=== PATIENT | male | born 1985 ===

== ENCOUNTER 2023-04-22 20:07 | Emergency (ER) | payer SELFPAY ==
[2023-04-22 20:57] LABS: Absolute Lymphocytes (CBC) 1.9 K/uL (0.7-4.9); Hematocrit 38.9 % (39.6-49.0); Lymphocytes % 25.5 % (15.3-44.8); MCV 95.4 fL (80-100); MPV 6.2 fL (7.6-11.3); Platelets 371 thou/uL (152-406); RBC Red Blood Cell Count 4.08 M/uL (4.33-5.43)
[2023-04-22 20:59] LABS: Protime INR 0.96
--- NOTE | 2023-04-22 21:11 | RAD REPORT ---
EXAM DESCRIPTION: RAD - Chest Single View - 04/22/2023 9:03 pm CLINICAL HISTORY: DYSPNEA Chest pain. COMPARISON: <Comparisons> FINDINGS: Portable technique limits examination quality. The lungs are grossly clear. The heart is normal in size. No displaced fractures. IMPRESSION: No acute intrathoracic process suspected.
[2023-04-22 21:15] LABS: Albumin 3.7 g/dL (3.4-5.0); Bilirubin Direct 0.1 mg/dL (0-0.2); Bilirubin Indirect, Calculated 0.3 mg/dL (0.2-0.8); Bilirubin Total 0.4 mg/dL (0.2-1.0); Magnesium 1.8 mg/dL (1.6-2.4); Potassium 3.2 mEq/L (3.5-5.1); Protein, Total 8.1 g/dL (6.4-8.2)
--- NOTE | 2023-04-22 22:24 | EDPHYS ---
Physician Documentation [facility] Name: Miguel Hale Age: 38 yrs Sex: Male : 1985 Arrival Date: 04/22/2023 Time: 20:07 Bed 2 Private MD: ED Physician Mervin Guajardo HPI: 04/22 20:12 This 38 yrs old Male presents to ER via Unassigned with complaints of sp4 Shortness Of Breath, Dizziness. 21:02 This is a very pleasant young man with no significant past medical history who presents sp4 with a cute onset of dizziness, associated with dyspnea on exertion while at work and near syncopal episode. Dizziness started 1 week ago associated with dyspnea on exertion without any chest pain. Patient denied palpitations. He denied syncopal episode. 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 . Historical: - Allergies: 20:25 No Known Allergies; mb9 - Home Meds: 20:25 None [Active]; mb9 - PMHx: 20:25 None; mb9 - PSHx: 20:25 None; mb9 - Immunization history:: Client reports having NOT received the Covid vaccine. - Social history:: Smoking status: Patient denies any tobacco usage or history of. - Family history:: not pertinent. ROS: 21:02 Constitutional: Negative for fever, chills, and weight loss, Cardiovascular: Negative sp4 for chest pain, palpitations, and edema, positive dizziness, positive for dyspnea on exertion, positive for near syncope 21:02 All other systems are negative. Exam: 21:02 Constitutional: This is a well developed, well nourished patient who is awake, alert, sp4 and in no acute distress. Head/Face: Normocephalic, atraumatic. Eyes: Pupils equal round and reactive to light, extra-ocular motions intact. Lids and lashes normal. Conjunctiva and sclera are not injected. Cornea within normal limits. Periorbital areas with no swelling, redness, or edema. ENT: Nares patent. No nasal discharge, no septal abnormalities noted. Tympanic membranes are normal and external auditory canals are clear. Oropharynx with no redness, swelling, or masses, exudates, or evidence of obstruction, uvula midline. Mucous membranes moist. Neck: Trachea midline, no thyromegaly or masses palpated, and no cervical lymphadenopathy. Supple, full range of motion without nuchal rigidity, or vertebral point tenderness. Chest/axilla: Normal chest wall appearance and motion. Nontender with no deformity. No lesions are appreciated. Cardiovascular: Regular rate and rhythm with a normal S1 and S2. No gallops, murmurs, or rubs. Normal PMI, no JVD. No pulse deficits. Respiratory: Lungs have equal breath sounds bilaterally, clear to auscultation and percussion. No rales, rhonchi or wheezes noted. No increased work of breathing, no retractions or nasal flaring. Abdomen/GI: Soft, non-tender, with normal bowel sounds. No distension or tympany. No guarding or rebound. No evidence of tenderness throughout. Back: No spinal tenderness. No costovertebral tenderness. Skin: Warm, dry with normal turgor. Normal color with no rashes, no lesions, and no evidence of cellulitis. MS/ Extremity: Pulses equal, no cyanosis. Neurovascular intact. Full, normal range of motion. Neuro: Awake and alert, GCS 15, oriented to person, place, time, and situation. Cranial nerves II-XII grossly intact. Motor strength 5/5 in all extremities. Sensory grossly intact. Psych: Awake, alert, with orientation to person, place and time. Behavior, mood, and affect are within normal limits 21:02 ECG was reviewed by the Attending Physician. EKG time 2036, normal sinus rhythm with sp4 short AL. No ST elevation or depression, no ectopy, and no other abnormality. Vital Signs: 20:20 BP 152 / 111 RA; Pulse 97; Resp 20; Temp 98.1; Pulse Ox 100% ; Weight 74.84 kg; Height mb9 5 ft. 9 in. ; 20:20 BP 149 / 98 LL; mb9 21:27 BP 128 / 94; Pulse 82; Resp 18; Pulse Ox 100% ; kl 20:20 Body Mass Index 24.37 (74.84 kg, 175.26 cm) mb9 MDM: 20:15 Patient medically screened. sp4 22:20 Differential diagnosis: Anemia Anxiety Reaction CHF exacerbation, Psychogenic pulmonary sp4 edema, Unstable Angina. Data reviewed: vital signs, nurses notes, old medical records, lab test result(s), EKG, radiologic studies, plain films. ED course: Chest x-ray as noted, EKG is normal, labs revealed mild hypokalemia otherwise normal. 22:21 ED course: Patient will require 2 days off and bedrest for 2 days, referral to local [facility] mine safety director for evaluation in office such as echocardiogram and Holter monitor. At this time there is no emergent cardiac conditions detected. . 04/22 20:15 Order name: Basic Metabolic Panel; Complete Time: 22: 4 04/22 20:15 Order name: CBC with Diff; Complete Time: 21:05 sp4 04/22 20:15 Order name: LFT's; Complete Time: 22: [facility] 04/22 20:15 Order name: Magnesium; Complete Time: 22: [facility] 04/22 20:15 Order name: NT PRO-BNP; Complete Time: 22: [facility] 04/22 20:15 Order name: PT-INR; Complete Time: 21:05 [facility] 04/22 20:15 Order name: Troponin HS; Complete Time: 22: [facility] 04/22 20:15 Order name: XRAY Chest (1 view); Complete Time: 22: 4 04/22 20:15 Order name: EKG; Complete Time: 20:16 [facility] 04/22 20:15 Order name: Cardiac monitoring; Complete Time: 21:11 [facility] 04/22 20:15 Order name: EKG - Nurse/Tech; Complete Time: 21:11 4 04/22 20:15 Order name: IV Saline Lock; Complete Time: 21: [facility] 04/22 20:15 Order name: Labs collected and sent; Complete Time: 21:11 [facility] 04/22 20:15 Order name: O2 Per Protocol; Complete Time: 21:11 4 04/22 20:15 Order name: O2 Sat Monitoring; Complete Time: 21:11 sp4 EC:02 Rate is 84 beats/min. Rhythm is regular, Normal Sinus Rhythm. QRS Cascade is Normal. AL sp4 interval is shortened. QRS interval is normal. QT interval is normal. T waves are Normal. No ST changes noted. Clinical impression: No evidence of ischemia. Interpreted by me. Administered Medications: No medications were administered Disposition Summary: 04/22/23 22:24 Discharge Ordered Location: Home sp4 Problem: new sp4 Symptoms: have improved sp4 Condition: Stable sp4 Diagnosis - Syncope Near sp4 - Hypokalemia, heat exhaustion sp4 Followup: sp4 - With: Kota Burr MD - When: 10 - 14 days - Reason: Recheck today's complaints Discharge Instructions: - Discharge Summary Sheet sp4 - Heat Exhaustion sp4 Forms: - Work release form kl - Patient Portal Instructions sp4 Signatures: Dispatcher [employer] Cheyanne Garcia RN RN mb9 Mervin Guajardo MD MD sp4
--- NOTE | 2023-04-22 22:24 | ER ---
Nurse's Notes [facility] Name: Miguel Hale Age: 38 yrs Sex: Male : 1985 Arrival Date: 04/22/2023 Time: 20:07 Bed 2 Private MD: Diagnosis: Syncope Near;Hypokalemia, heat exhaustion Presentation: 04/22 20:20 Chief complaint: Patient states: For the past week I have been getting short of breath mb9 and dizzy while at work. I've never had this problem before. My dad was about this age when he did the same thing and ended up needing 3 stents. Ebola Screen: Patient negative for fever greater than or equal to 101.5 degrees Fahrenheit, and additional compatible Ebola Virus Disease symptoms Patient denies exposure to infectious person. Patient denies travel to an Ebola-affected area in the 21 days before illness onset. No symptoms or risks identified at this time. Initial Sepsis Screen: Does the patient meet any 2 criteria? No. Patient's initial sepsis screen is negative. Does the patient have a suspected source of infection? No. Patient's initial sepsis screen is negative. Risk Assessment: Do you want to hurt yourself or someone else? Patient reports no desire to harm self or others. Onset of symptoms is unknown. 20:20 Method Of Arrival: Ambulatory mb9 20:20 Acuity: OMAR 3 mb9 20:25 Coronavirus screen: Vaccine status: Patient reports being unvaccinated. mb9 Triage Assessment: 20:26 General: Appears in no apparent distress. comfortable, Behavior is calm, cooperative, mb9 appropriate for age. Pain: Denies pain. EENT: No deficits noted. No signs and/or symptoms were reported regarding the EENT system. Neuro: Level of Consciousness is awake, alert, obeys commands, Oriented to person, place, time, situation, Appropriate for age. Cardiovascular: No deficits noted. Reports since Shortness of breath, nausea and dizziness with near syncope all last week at work. Respiratory: Reports shortness of breath at work Onset: The symptoms/episode began/occurred for the last week, the patient reports symptoms have resolved. GI: No deficits noted. No signs and/or symptoms were reported involving the gastrointestinal system. : No deficits noted. No signs and/or symptoms were reported regarding the genitourinary system. Derm: No deficits noted. No signs and/or symptoms reported regarding the dermatologic system. Musculoskeletal: No deficits noted. No signs and/or symptoms reported regarding the musculoskeletal system. Historical: - Allergies: 20:25 No Known Allergies; mb9 - Home Meds: 20:25 None [Active]; mb9 - PMHx: 20:25 None; mb9 - PSHx: 20:25 None; mb9 - Immunization history:: Client reports having NOT received the Covid vaccine. - Social history:: Smoking status: Patient denies any tobacco usage or history of. - Family history:: not pertinent. Screenin:25 [facility] ED Fall Risk Assessment (Adult) History of falling in the last 3 months, mb9 including since admission No falls in past 3 months (0 pts) Confusion or Disorientation No (0 pts) Intoxicated or Sedated No (0 pts) Impaired Gait No (0 pts) Mobility Assist Device Used No (0 pt) Altered Elimination No (0 pt) Score/Fall Risk Level 0 - 2 = Low Risk Oriented to surroundings, Maintained a safe environment, Educated pt \T\ family on fall prevention, incl call for assistance when getting out of bed. Abuse screen: Denies threats or abuse. Nutritional screening: No deficits noted. Tuberculosis screening: No symptoms or risk factors identified. Assessment: 20:20 General: Appears in no apparent distress. Behavior is calm, cooperative. 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 Neuro: No deficits noted. Cardiovascular: Rhythm is sinus rhythm. Respiratory: No deficits noted. Airway is patent Respiratory effort is even, unlabored, Breath sounds are clear bilaterally. 21:36 Reassessment: Patient appears in no apparent distress at this time. Patient and/or jb4 family updated on plan of care and expected duration. Pain level reassessed. Patient is alert, oriented x 3, equal unlabored respirations, skin warm/dry/pink. Vital Signs: 20:20 BP 152 / 111 RA; Pulse 97; Resp 20; Temp 98.1; Pulse Ox 100% ; Weight 74.84 kg; Height mb9 5 ft. 9 in. ; 20:20 BP 149 / 98 LL; mb9 21:27 BP 128 / 94; Pulse 82; Resp 18; Pulse Ox 100% ; kl 20:20 Body Mass Index 24.37 (74.84 kg, 175.26 cm) mb9 ED Course: 20:12 Patient arrived in ED. ag3 20:12 Mervin Guajardo MD is Attending Physician. sp4 20:20 Inserted saline lock: 20 gauge in left antecubital area, using aseptic technique. Blood kl collected. 20:25 Triage completed. mb9 20:25 Arm band placed on left wrist. mb9 21:05 XRAY Chest (1 view) In Process Unspecified. EDMS 21:11 Basic Metabolic Panel Sent. kl 21:11 LFT's Sent. kl 21:11 Magnesium Sent. kl 21:11 NT PRO-BNP Sent. kl 21:11 Troponin HS Sent. kl 22:23 Kota Burr MD is Referral Physician. sp4 22:33 No provider procedures requiring assistance completed. IV discontinued, intact, kl bleeding controlled, No redness/swelling at site. Pressure dressing applied. Administered Medications: No medications were administered Medication: 20:27 VIS not applicable for this client. mb9 Outcome: 22:24 Discharge ordered by . sp4 22:33 Discharged to home ambulatory. kl 22:33 Condition: stable 22:33 Discharge instructions given to patient, Instructed on discharge instructions, follow up and referral plans. Demonstrated understanding of instructions, follow-up care. 22:34 Patient left the ED. kl Signatures: Dispatcher [employer] Eun Solares, RN Pedro Pablo Paulino RN RN jb4 Shira Hernandez 3 Cheyanne James RN RN mbMervin Cano MD MD sp4
[2023-04-22 23:24] VITALS: TEMP 98.1; O2SAT 100
[2023-04-22 23:26] VITALS: BP 128/94
--- NOTE | 2023-04-23 17:02 | EKG ---
Test Date: 2023-04-22 Test Time: 20:37:07 Acute Care Surgeon: OCTAVIO MEASUREMENT RESULTS: Intervals: Rate: 84 IA: 102 QRSD: 86 QT: 378 QTc: 446 [place]: P: 55 IA: 102 QRS: 58 T: 22 INTERPRETIVE STATEMENTS: Sinus rhythm with short IA Otherwise normal ECG No previous ECG available for comparison Electronically Signed On 04-23-23 17:01:13 CDT by Kota Burr
== END 2023-04-22 22:34 | disposition home or self-care (01) ==
LOC: ER 20:07
DX: R55 Syncope and collapse (principal); E87.6 Hypokalemia; X30.XXXA Exposure to excessive natural heat, initial encounter; R06.02 Shortness of breath; R42 Dizziness and giddiness
CPT/HCPCS: 36415; 71045; 80048; 80076; 83735; 83880; 84484; 85025; 85610; 93005; 99284